=== PATIENT | male | born 1945 | race Caucasian/White ===

== ENCOUNTER → 2016-12-24 | Outpatient (CLI) | payer OTHER ==
[~2016-12-24] MED LIST: GLIP5TAB11 PO; HYZ/10015 PO; LEVO5TAB2 PO; METF1000 PO; MONT1TAB3 PO; OMEP20CA9 PO; PRAV20TA PO
--- NOTE | 2016-12-24 10:32 | DIAGNOSTIC IMAGING REPORT ---
CHEST CT WITHOUT CONTRAST CT DOSE: 874.26 mGy.cm HISTORY: Cough. Dyspnea. R05 [id number] Elevated diaphragm TECHNIQUE: Multiaxial CT images of the chest were performed without contrast. COMPARISON: None. FINDINGS: Multiple micronodules throughout both hemithoraces. These measure from 2 to 4 mm involve the upper as well as lower lung regions bilaterally. No well-defined focal consolidative infiltrate is identified. There is moderate atherosclerotic change thoracic aorta. There is no significant mediastinal or hilar adenopathy. There is calcification of carotid vasculature. IMPRESSION: Multiple small 2 to 4 mm nodules throughout both hemithoraces. Follow-up per Fleischner criteria is recommended. Remainder the study is negative. Please refer to below summary of Fleischner criteria recommendations for follow-up of incidental CT nodules (Tamara Reddy, Guidelines for management of small pulmonary nodules detected on CT scans: A statement from the Fleischner Society, Radiology 237: [phone].) SOLID NODULES Solitary nodule size: <6 mm * low risk patients: no follow-up needed * high risk patients: optional CT at 12 months Solitary nodule size: 6-8 mm * low risk patients: follow-up at 6-12 months, then consider further follow-up at 18-24 months * high risk patients: initial follow-up CT at 6-12 months and then at 18-24 months if no change Solitary nodule size: >8 mm * either low or high risk patients - consider follow-up CT at 3 months, and/or CT-PET, and/or biopsy Multiple nodules size: <6 mm * low risk patients: no routine follow-up * high risk patients: optional CT at 12 months Multiple nodules size: 6-8 mm * low risk patients: follow-up at 3-6 months, then consider further follow-up at 18-24 months * high risk patients: follow-up at 3-6 months, then at 18-24 months if no change Multiple nodules size: >8 mm * low risk patients: follow-up at 3-6 months, then consider further follow-up at 18-24 months * high risk patients: follow-up at 3-6 months, then at 18-24 months if no change Note: newly detected indeterminate nodule in persons 35 years of age or older. * Low risk patients: minimal or absent history of smoking and/or other known risk factors * high risk patients: history of smoking or of other known risk factors (e.g. first degree relative with lung cancer, or exposure to asbestos, radon, uranium) * if a nodule up to 8 mm is partly solid or is ground glass further follow-up is required after 24 months to exclude possible slow growing adenocarcinoma (LADONNA) SUBSOIL NODULES Solitary pure ground-glass nodule * nodule size <6 mm - no CT follow-up required * nodule size >=6 mm - follow-up CT at 6-12 months, then every 2 years until 5 years Solitary part-solid nodule * nodule size <6 mm - no CT follow-up required * nodule size >=6 mm - follow-up CT at 3-6 months. If unchanged, and solid component remains <6 mm, then annual follow-up for 5 years Multiple subsolid nodules * nodule size <6 mm - follow-up CT at 3-6 months, consider further follow-up at 2 and 4 years if stable * nodule size >=6 mm - follow-up CT at 3-6 months, subsequent management based on the most suspicious nodule(s) Electronically signed by: Karthikeyan Sweet M.D. 12/24/2016 10:29 AM Dictated Date/Time: 12/24/2016 10:25 AM
== END | disposition home or self-care (01) ==
LOC: C.CTS 10:04
PROVIDERS: ATTEND Internal Medicine Pulmonary Disease
DX: J98.6 Disorders of diaphragm (principal); R05 Cough; R91.8 Other nonspecific abnormal finding of lung field

== ENCOUNTER → 2017-04-09 | Outpatient (CLI) | payer OTHER ==
[~2017-04-09] MED LIST changes: +LEVO-371 PO; -LEVO5TAB2 PO
--- NOTE | 2017-04-09 07:33 | DIAGNOSTIC IMAGING REPORT ---
ULTRASOUND EXAM AAA SCREEN CLINICAL HISTORY: CAROTID ATHEROSCLEROSIS COMPARISON STUDY: None. FINDINGS: Normal caliber abdominal aorta with no evidence for aneurysm. The proximal abdominal aorta measures 2.4 cm, mid aorta 2.0 cm, and distal aorta 1.7 cm. Bilateral common iliac arteries were obscured by overlying bowel gas. Hepatic steatosis. IMPRESSION: No evidence for an abdominal aortic aneurysm. Electronically signed by: Dilan Cantrell M.D. 04/09/2017 7:32 AM Dictated Date/Time: 04/09/2017 7:31 AM
--- NOTE | 2017-04-09 07:35 | DIAGNOSTIC IMAGING REPORT ---
CAROTID DOPPLER NECK ART HISTORY: Carotid's atherosclerosis mental status change CAROTID ATHEROSCLEROSIS COMPARISON: None. TECHNIQUE: Real-time, grayscale, and color Doppler sonography of the carotid arteries was performed. Imaging reviewed in the transverse and longitudinal planes. All measurements were calculated based on NASCET criteria. FINDINGS: Antegrade flow is seen in the bilateral vertebral arteries. The brachial pressures are hemodynamically similar. Mild plaque formation bilaterally The peak systolic velocity within the right ICA is 73. The right systolic ratio is 0.8. The peak systolic velocity within the left ICA is 78. The left systolic ratio is 1.1. IMPRESSION: No hemodynamically significant stenosis seen within the carotid arteries. Minimal plaque formation bilaterally The above report was generated using voice recognition software. It may contain grammatical, syntax or spelling errors. Electronically signed by: Karthikeyan Sweet M.D. 04/09/2017 7:33 AM Dictated Date/Time: 04/09/2017 7:31 AM
--- NOTE | 2017-04-16 09:28 | CODING QUERY MEDICAL NECESSITY ---
SUPPORTING DIAGNOSIS NEEDED A supporting diagnosis is required for the test/procedure performed on this patient in order for us to be reimbursed by the patient's insurance. Please provide a supporting diagnosis for the following test/procedure listed below next to the test name along with your signature. *If there is no additional diagnosis for this patient that would support the following test/procedure please document that below next to the test/procedure. Test(s)/Procedure(s) that require a supporting diagnosis: * CAROTID DUPLEX NECK ARTERY DIAGNOSIS: Provider Signature: Date: Thank you Karen Gastelum [employer] Information Management Once completed, please kindly fax back to [phone] For questions please call [phone]
== END | disposition home or self-care (01) ==
LOC: C.ULTR 06:33
PROVIDERS: ATTEND Physician Assistant
DX: I70.8 Atherosclerosis of other arteries (principal); I70.0 Atherosclerosis of aorta

== ENCOUNTER → 2017-10-04 | Outpatient (CLI) | payer OTHER ==
[~2017-10-04] MED LIST changes: -LEVO-371 PO; +LEVO5TAB2 PO; +OPTIRAY 320 IV PRN
--- NOTE | 2017-10-04 17:25 | DIAGNOSTIC IMAGING REPORT ---
CT NECK WITH AND WITHOUT INTRAVENOUS CONTRAST HISTORY: Left submandibular swelling. LOCALIZED SWELLING LUMP NECK R/O MASS TECHNIQUE: Multiaxial CT images of the neck were performed both before and after the intravenous administration of contrast. COMPARISON STUDY: None. FINDINGS: Noncontrast imaging shows no stones within the salivary glands. There is an edematous, hyperenhancing, enlarged left submandibular gland in comparison to the right. No distinct masses identified. There is surrounding fat stranding/inflammatory change within the left submandibular location. There are few asymmetrically enlarged left submandibular and left cervical lymph nodes which are likely reactive. There is also mild thickening and enhancement within the left lingual tonsil in comparison to the right. This may also be reactive to the adjacent inflammatory change. The parotid and right submandibular gland are within normal limits. The visualized brain parenchyma and orbits are unremarkable. The mastoid air cells are clear. Small fluid levels within the right maxillary sinus and left sphenoid sinus. Small retention cyst within the floor the left maxillary sinus. The mastoid air cells are clear. Degenerative changes within the cervical spine. A 3 mm nodule within the left upper lobe on image 283. The trachea and airway are patent. Prevertebral soft tissues and the epiglottis are normal in thickness. Focal area of high-grade stenosis within the distal right vertebral artery at the foramen magnum. The remaining major cervical vessels appear widely patent. Mild calcified plaque within the right carotid bifurcation. IMPRESSION: 1. An edematous, hyperenhancing, and enlarged left submandibular gland consistent with sialoadenitis. No stones identified. 2. Mild left submandibular and cervical lymphadenopathy as well as mild hypertrophy of the left lingual tonsil. These are likely reactive. 3. High-grade focal stenosis at the distal right vertebral artery. 4. A 3 mm indeterminate pulmonary nodule within the left upper lobe. Please refer to the chart below for recommended follow-up. 5. Mild acute sinusitis as described above. Please refer to below summary of Fleischner criteria recommendations for follow-up of incidental CT nodules (Tamara Reddy, Guidelines for management of small pulmonary nodules detected on CT scans: A statement from the Fleischner Society, Radiology 237: [phone].) SOLID NODULES Solitary nodule size: <6 mm * Low risk patients: no follow-up needed * high risk patients: optional CT at 12 months Solitary nodule size: 6-8 mm * Low risk patients: follow-up at 6-12 months, then consider further follow-up at 18-24 months * high risk patients: initial follow-up CT at 6-12 months and then at 18-24 months if no change Solitary nodule size: >8 mm * either low or high risk patients - consider follow-up CT at 3 months, and/or CT-PET, and/or biopsy Multiple nodules size: <6 mm * Low risk patients: no routine follow-up * high risk patients: optional CT at 12 months Multiple nodules size: 6-8 mm * Low risk patients: follow-up at 3-6 months, then consider further follow-up at 18-24 months * high risk patients: follow-up at 3-6 months, then at 18-24 months if no change Multiple nodules size: >8 mm * Low risk patients: follow-up at 3-6 months, then consider further follow-up at 18-24 months * high risk patients: follow-up at 3-6 months, then at 18-24 months if no change Note: newly detected indeterminate nodule in persons 35 years of age or older. * Low risk patients: minimal or absent history of smoking and/or other known risk factors * high risk patients: history of smoking or of other known risk factors (e.g. first degree relative with lung cancer, or exposure to asbestos, radon, uranium) * if a nodule up to 8 mm is partly solid or is ground glass further follow-up is required after 24 months to exclude possible slow growing adenocarcinoma (LADONNA) SUBSOLID NODULES Solitary pure ground-glass nodule * nodule size <6 mm - no CT follow-up required * nodule size >=6 mm - follow-up CT at 6-12 months, then every 2 years until 5 years Solitary part-solid nodule * nodule size <6 mm - no CT follow-up required * nodule size >=6 mm - follow-up CT at 3-6 months. If unchanged, and solid component remains <6 mm, then annual follow-up for 5 years Multiple subsolid nodules * nodule size <6 mm - follow-up CT at 3-6 months, consider further follow-up at 2 and 4 years if stable * nodule size >=6 mm - follow-up CT at 3-6 months, subsequent management based on the most suspicious nodule(s) Electronically signed by: Dlian Cantrell M.D. 10/04/2017 5:23 PM Dictated Date/Time: 10/04/2017 5:15 PM
== END | disposition home or self-care (01) ==
LOC: C.CTS 16:26
PROVIDERS: ATTEND Physician Assistant
DX: R22.1 Localized swelling, mass and lump, neck (principal); K11.1 Hypertrophy of salivary gland; J35.1 Hypertrophy of tonsils; I67.2 Cerebral atherosclerosis; R91.1 Solitary pulmonary nodule; Z86.19 Personal history of other infectious and parasitic diseases

== ENCOUNTER → 2018-01-01 | Outpatient (CLI) | payer OTHER ==
[~2018-01-01] MED LIST changes: -OPTIRAY 320 IV PRN
--- NOTE | 2018-01-01 10:04 | DIAGNOSTIC IMAGING REPORT ---
(CHEST) THORAX WITHOUT CT DOSE: 562.55 mGycm HISTORY: R91.8 Multiple lung nodules TECHNIQUE: Multiaxial CT images of the chest were performed without contrast. A dose lowering technique was utilized adhering to the principles of ALARA. COMPARISON: Chest CT 12/24/2016. FINDINGS: The central airways are patent. No pleural effusions. No pneumothorax. Stable 3 mm nodule within the left upper lobe on image 97. Multiple small subpleural nodule seen along the left major fissure also remain unchanged. Stable 4 m subpleural nodule within the left lower lobe on image 176. Stable 4 moderate nodule within the left lower lobe on image 165 and also on image 161. Stable 4 moderate nodule within the left lower lobe in image 119. Stable 3 mm nodule within the right lower lobe on image 187. Stable 4 moderate nodule within the right lower lobe on image 214. Small cluster of multiple new nodules within the right lower lobe. These demonstrate a tree-in-bud pattern and therefore favor mild inflammatory/infectious change. Dominant nodule measures 4 mm on image 184. No suspicious lytic or blastic osseous lesions. The visualized liver, adrenal glands, and spleen are unremarkable. Mild elevation of the left hemidiaphragm, unchanged. Calcified plaque within the left coronary arteries. The heart is normal in size. No pericardial effusion. Normal caliber thoracic aorta. No mediastinal or hilar lymphadenopathy. IMPRESSION: 1. The majority of the subcentimeter nodules are stable compared to the 2017 examination. These measure up to 4 mm in size. 2. There is a small cluster of new nodules within the right lower lobe which demonstrate a tree-in-bud pattern and therefore favor mild inflammatory/infectious change. 3. Six-month chest CT follow-up is recommended to ensure stability/resolution of the above findings. Electronically signed by: Dilan Cantrell M.D. 01/01/2018 10:03 AM Dictated Date/Time: 01/01/2018 9:49 AM
== END | disposition home or self-care (01) ==
LOC: C.CTS 09:12
PROVIDERS: ATTEND Internal Medicine Pulmonary Disease
DX: R91.8 Other nonspecific abnormal finding of lung field (principal)